=== PATIENT | male | born 1955 | race Caucasian/White ===

== ENCOUNTER 2019-08-24 07:54 | Outpatient (CLI) | payer MEDICARE, SELFPAY ==
--- NOTE | 2019-08-24 08:07 | US_ITS ---
WS: [id number] Complete ABDOMINAL ULTRASOUND HISTORY: ABNORMAL LIVER FUNCTION COMPARISON: None available. Liver: 20.5 cm in length. Moderately enlarged liver with mild coarsened echotexture from hepatic stea tosis. No bile duct dilatation or mass. Gallbladder: Normally distended with no gallstones, wall thickening or pericholecystic fluid. Gallbladder wall thickness: 0.2 cm. Pancreas: Normal size and echogenicity. CBD: 0.5 cm. Right kidney: 11.7 cm x 5.7 cm x 5.1 cm. No mass, cortical thickening or hydronephrosis. Left kidney: 11.9 cm x 6.5 cm x 6.3 cm. No mass, cortical thickening or hydronephrosis. Prominent me dullary pyramids in the mid kidney. Spleen: Spleen is slightly enlarged at 15 cm in length. No mass. Abdominal aorta and IVC are within normal limits. No ascites. US/US abdomen complete* [id number] IMPRESSION: 1. Moderate hepatomegaly with mild hepatic steatosis. 2. Normal gallbladder. 3. Mild splenomegaly.
== END 2019-08-24 07:55 | disposition home or self-care (01) ==
LOC: RAD 08:01
PROVIDERS: PCP Nurse Practitioner; Visit Provider Nurse Practitioner
DX: R94.5 Abnormal results of liver function studies (principal); R16.0 Hepatomegaly, not elsewhere classified; K76.0 Fatty (change of) liver, not elsewhere classified; R16.1 Splenomegaly, not elsewhere classified
CPT/HCPCS: 76700

== ENCOUNTER → 2021-08-13 09:43 | Outpatient (BNVA) | payer MEDICARE, SELFPAY | PROVIDERS: PCP Nurse Practitioner; Visit Provider Internal Medicine Cardiovascular Disease | DX: I11.0 Hypertensive heart disease with heart failure (principal); I50.9 Heart failure, unspecified; Z86.79 Personal history of other diseases of the circulatory system; E78.5 Hyperlipidemia, unspecified; Z87.891 Personal history of nicotine dependence | CPT/HCPCS: 93005; 99214 ==

== ENCOUNTER 2021-12-11 12:13 | Outpatient (CLI) | payer MEDICARE, SELFPAY ==
--- NOTE | 2021-12-11 12:45 | USCV_ITS ---
Alon Cat Age: 66 Gender: M : 1955 Exam Date: 12/11/2021 12:31 Ordering Phys: Christina Ricardo MD ([email or web address]) Technologist: Veronica Gonzales [place] [facility] [place]: Cardiomyopathy BP: / HR: 67 Rhythm: Sinus Technical Quality: Adequate MEASUREMENTS (Male / Female) Normal Values 2D ECHO LV Diastolic Diameter PLAX 4.6 cm 4.2 - 5.9 / 3.9 - 5.3 cm LV Systolic Diameter PLAX 3.2 cm LV Chamber Size 4.5 cm IVS Diastolic Thickness 1.1 cm 0.6 - 1.0 / 0.6 - 0.9 cm IVS Systolic Thickness 1.8 cm LVPW Diastolic Thickness 1.2 cm 0.6 - 1.0 / 0.6 - 0.9 cm LVPW Systolic Thickness 1.7 cm RV Chamber Size 3.0 cm LVOT Diameter 2.0 cm LV Ejection Fraction 2D Teich 57.7 % LV Ejection Fraction MOD 2C 50.1 % LV Ejection Fraction 2C AL 50.1 % LA Diameter 3.0 cm LA Width 2.4 cm LA Height 3.6 cm RA Width 3.2 cm RA Height 4.3 cm Aorta at Sinotubular Diameter 3.3 cm IVC Diameter 2.2 cm M-MODE Aortic Annulus Diameter 3.2 cm LA Ao Ratio MM 1.1 MV E Point Septal Separation 1.3 cm DOPPLER AV Peak Velocity 123.0 cm/s LVOT Peak Velocity 67.7 cm/s AV Area Cont Eq vti 1.9 cm squared AV Area Cont Eq pk 1.7 cm squared MV Area PHT 3.0 cm squared Mitral E to A Ratio 0.7 MV E' Velocity 30.5 cm/s Mitral E to MV E' Ratio 8.2 Mitral E to LV E' Lateral Ratio 7.4 Mitral E to LV E' Septal Ratio 9.3 TR Peak Velocity 219.4 cm/s TR Peak Gradient 19.3 mmHg TR Mean Velocity 161.3 cm/s TR Mean Gradient 12.0 mmHg TR Velocity Time Integral 61.2 cm TV Peak E Velocity 60.0 cm/s Right Atrial Pressure 3.0 mmHg Pulmonary Artery Systolic Pressu 22.3 mmHg RV Acceleration Time 0.3 s RV Ejection Time 0.1 s RV AcT/ET 2.3 FINDINGS Left Ventricle Normal LV size with a slightly diminished ejection fraction of 50%. Mild diffuse hypokinesis of the left ventricle.mild left ventricular hypertrophy. Grade I/IV diastolic dysfunction (abnormal relaxation filling pattern), normal to mildly elevated filling pressures. Right Ventricle The right ventricle is normal in size and function. Right Atrium The right atrium is normal in size. Left Atrium The left atrium is normal in size. Mitral Valve No gross abnormalities noted Aortic Valve Thickened aortic valve. Tricuspid Valve Trace to mild tricuspid valve regurgitation. Pulmonic Valve No gross abnormalities noted Pericardium Normal pericardium without effusion. Aorta Normal ascending aorta dimension. IVC Normal inferior vena cava. CONCLUSIONS Normal LV size with a slightly diminished ejection fraction of 50%. Mild diffuse hypokinesis of the left ventricle.mild left ventricular hypertrophy. Grade I/IV diastolic dysfunction (abnormal relaxation filling pattern), normal to mildly elevated filling pressures. Trace to mild tricuspid valve regurgitation. Estimated pulmonary artery peak systolic pressure of 22 mmHg There is no pericardial effusion. There are no intracardiac masses. Compared to the study from 08/02/2016, there may not be significant change Dr Christina Ricardo MD [facility] (Electronically Signed) Final Date: 11 December 2021 19:23 S
== END 2021-12-11 12:14 | disposition home or self-care (01) ==
PROVIDERS: PCP Nurse Practitioner Family; Visit Provider Internal Medicine Cardiovascular Disease
DX: I42.9 Cardiomyopathy, unspecified (principal); I07.1 Rheumatic tricuspid insufficiency
CPT/HCPCS: 93306

== ENCOUNTER → 2022-01-24 10:25 | Outpatient (BNVA) | payer MEDICARE, SELFPAY | PROVIDERS: PCP Nurse Practitioner Family; Visit Provider Family Medicine | DX: R50.9 Fever, unspecified (principal); J18.9 Pneumonia, unspecified organism; Z20.822 Contact with and (suspected) exposure to COVID-19 | CPT/HCPCS: 87400; 87426 ==

== ENCOUNTER → 2022-02-25 09:59 | Outpatient (BNVA) | payer MEDICARE, SELFPAY | PROVIDERS: PCP Nurse Practitioner Family; Visit Provider Internal Medicine Cardiovascular Disease | DX: I11.0 Hypertensive heart disease with heart failure (principal); I50.9 Heart failure, unspecified; I42.9 Cardiomyopathy, unspecified; E78.5 Hyperlipidemia, unspecified; Z87.891 Personal history of nicotine dependence | CPT/HCPCS: 99214 ==

== ENCOUNTER → 2022-09-24 10:52 | Outpatient (BNVA) | payer MEDICARE, SELFPAY | PROVIDERS: PCP Nurse Practitioner Family; Visit Provider Specialist | DX: I42.9 Cardiomyopathy, unspecified (principal); E78.5 Hyperlipidemia, unspecified; Z87.891 Personal history of nicotine dependence; I11.0 Hypertensive heart disease with heart failure; I50.9 Heart failure, unspecified | CPT/HCPCS: 99214 ==

== ENCOUNTER → 2023-06-15 14:11 | Outpatient (BNVA) | payer MEDICARE, SELFPAY | PROVIDERS: PCP Nurse Practitioner Family; Visit Provider Internal Medicine Cardiovascular Disease | DX: I25.10 Atherosclerotic heart disease of native coronary artery without angina pectoris (principal); E78.5 Hyperlipidemia, unspecified; I11.0 Hypertensive heart disease with heart failure; I50.32 Chronic diastolic (congestive) heart failure; Z87.891 Personal history of nicotine dependence | CPT/HCPCS: 99214 ==

== ENCOUNTER 2023-12-23 12:35 | Outpatient (CLI) | payer MEDICARE, SELFPAY ==
--- NOTE | 2023-12-23 12:48 | CT_ITS ---
WS: [id number] CT PARANASAL SINUSES HISTORY: SINUSITIS; NASAL POLYP TECHNIQUE: Contiguous 2.5 mm axial images obtained through the sinuses. Images are reconstructed in s agittal and coronal planes. All CT scans at [facility] use at least one of these dose optimiz ation techniques: automated exposure control; mA and/or kV adjustment per patient size (includes targ eted exams where dose is matched to clinical indication); or iterative reconstruction. DLP: 348.54 mGy.cm COMPARISON: None available. Frontal sinuses: Complete opacification of the frontal sinuses by soft tissue attenuation. Sphenoid sinus: Complete opacification of the sphenoid sinuses by soft tissue attenuation. Ethmoid sinuses: Complete opacification of the ethmoid sinuses, anterior and posterior by soft tissue . Maxillary sinus: Mild heterogeneity with complete opacification. Ostiomeatal unit: Completely obstructed by increased soft tissue. There is extensive soft tissue along the nasal cavity. Some of the inspissation is within the sinus c avities are of mixed attenuation. CT/CT sinus wo con* [id number] IMPRESSION: 1. Severe opacification of all of paranasal sinuses with additional soft tissu e extending into the nasal cavity. Very nonspecific appearance. The differentia l includes extensive inflammatory sinus disease, mucoceles, polyposis and funga l sinus disease. Recommend follow-up with ENT. 2. Complete occlusion of the ostiomeatal units.
== END 2023-12-23 12:36 | disposition home or self-care (01) ==
LOC: RAD 12:35
PROVIDERS: PCP Nurse Practitioner Family; Visit Provider Nurse Practitioner Family
DX: J32.9 Chronic sinusitis, unspecified (principal); J33.8 Other polyp of sinus
CPT/HCPCS: 70486

== ENCOUNTER 2024-03-23 14:16 | Outpatient (CLI) | payer MEDICARE, SELFPAY ==
--- NOTE | 2024-03-23 14:18 | CTR_ITS ---
PROCEDURE INFORMATION: Exam: CT Maxillofacial Without Contrast, Sinus Exam date and time: 03/23/2024 2:54 PM Age: 69 years old Clinical indication: Nasal congestion and sinusitis; Chronic; Additional info: Hronic pansinusitis TECHNIQUE: Imaging protocol: CT Maxillofacial without contrast. Focus on the sinuses. Radiation optimization: All CT scans at this facility use at least one of these dose optimization techniques: automated exposure control; mA and/or kV adjustment per patient size (includes targeted exams where dose is matched to clinical indication); or iterative reconstruction. COMPARISON: CT sinus wo con* [id number] 12/23/2023 12:48 PM RADIATION DOSE METRICS: Total DLP (mGy-cm): 353.55 FINDINGS: Frontal sinuses: Complete opacification of the frontal sinuses with only tiny amount of aeration in the right frontal sinus with today's exam in relation to prior exam. No air-fluid level. Ethmoid sinuses: Complete opacification of the ethmoid sinuses with small amount of aeration medially in the left ethmoid sinuses with today's exam in relation to prior exam. No air-fluid level. Sphenoid sinuses: Almost complete opacification with partial aeration of the left sphenoid sinus and small amount of aeration right sphenoid sinus in relation to prior exam. No air-fluid level. Maxillary sinuses: Complete opacification right maxillary sinus. Almost complete opacification of the left maxillary sinus with partial aeration with today's exam in relation to prior exam. No air-fluid level. Continued occlusion of the maxillary sinus ostia bilaterally. Nasal cavity: Extensive soft tissue in the nasal cavity is again seen. Orbital cavities: Orbits and globes of the orbits appear unremarkable. Bones: No fracture or bone destruction. Soft tissues: Unremarkable. CT/CT sinus wo con* [id number] IMPRESSION: Chronic opacification of all the paranasal sinuses in relation to prior exam 12/23/2023, with interval partial aeration left maxillary and sphenoid sinuses and small amount of aeration right sphenoid and medial left ethmoid sinuses and only tiny amount of aeration right frontal sinus. Continued complete occlusion of the maxillary sinus ostia.
== END 2024-03-23 14:17 | disposition home or self-care (01) ==
LOC: RAD 14:17
PROVIDERS: PCP Nurse Practitioner Family; Visit Provider Specialist
DX: J32.4 Chronic pansinusitis (principal); J33.0 Polyp of nasal cavity
CPT/HCPCS: 70486

== ENCOUNTER → 2024-07-19 09:56 | Outpatient (BNVA) | payer MEDICARE, SELFPAY | PROVIDERS: PCP Nurse Practitioner Family; Visit Provider Internal Medicine Cardiovascular Disease | DX: I11.0 Hypertensive heart disease with heart failure (principal); I50.32 Chronic diastolic (congestive) heart failure; E78.5 Hyperlipidemia, unspecified; I25.10 Atherosclerotic heart disease of native coronary artery without angina pectoris; F17.200 Nicotine dependence, unspecified, uncomplicated; Z79.82 Long term (current) use of aspirin | CPT/HCPCS: 99214 ==